=== PATIENT | male | born 1945 | race Caucasian/White ===

== ENCOUNTER 2016-05-07 09:40 | Outpatient (CLI) | payer MEDICARE | END 2016-05-07 09:41 | disposition home or self-care (01) | DX: Z79.01 Long term (current) use of anticoagulants (principal); I48.0 Paroxysmal atrial fibrillation ==

== ENCOUNTER 2016-06-11 07:37 | Outpatient (CLI) | payer MEDICARE | END 2016-06-11 07:38 | disposition home or self-care (01) | DX: Z79.01 Long term (current) use of anticoagulants (principal); I48.91 Unspecified atrial fibrillation ==

== ENCOUNTER 2016-06-25 07:41 | Outpatient (CLI) | payer MEDICARE | END 2016-06-25 07:42 | disposition home or self-care (01) | DX: Z79.01 Long term (current) use of anticoagulants (principal); I48.0 Paroxysmal atrial fibrillation ==

== ENCOUNTER 2016-08-07 08:27 | Outpatient (CLI) | payer MEDICARE | END 2016-08-07 08:28 | disposition home or self-care (01) | LOC: LAB.F 08:27 | PROVIDERS: ATTEND Family Medicine | DX: I48.0 Paroxysmal atrial fibrillation (principal); Z79.01 Long term (current) use of anticoagulants | CPT/HCPCS: 85610 ==

== ENCOUNTER 2016-09-10 07:15 | Outpatient (CLI) | payer MEDICARE | END 2016-09-10 07:16 | disposition home or self-care (01) | LOC: LAB.F 07:15 | PROVIDERS: ATTEND Family Medicine | DX: Z79.01 Long term (current) use of anticoagulants (principal) | CPT/HCPCS: 85610 ==

== ENCOUNTER 2016-10-08 08:07 | Outpatient (CLI) | payer MEDICARE | END 2016-10-08 08:08 | disposition home or self-care (01) | LOC: LAB.F 08:07 | PROVIDERS: ATTEND Family Medicine | DX: I48.0 Paroxysmal atrial fibrillation (principal); Z79.01 Long term (current) use of anticoagulants | CPT/HCPCS: 85610 ==

== ENCOUNTER 2016-11-12 08:47 | Outpatient (CLI) | payer MEDICARE | END 2016-11-12 08:48 | disposition home or self-care (01) | LOC: LAB.F 08:47 | PROVIDERS: ATTEND Family Medicine | DX: I48.0 Paroxysmal atrial fibrillation (principal); Z79.01 Long term (current) use of anticoagulants | CPT/HCPCS: 85610 ==

== ENCOUNTER 2016-12-17 07:49 | Outpatient (CLI) | payer MEDICARE | END 2016-12-17 07:50 | disposition home or self-care (01) | LOC: LAB.F 07:49 | PROVIDERS: ATTEND Family Medicine | DX: I48.0 Paroxysmal atrial fibrillation (principal); Z79.01 Long term (current) use of anticoagulants | CPT/HCPCS: 85610 ==

== ENCOUNTER 2017-01-14 08:01 | Outpatient (CLI) | payer MEDICARE | END 2017-01-14 08:02 | disposition home or self-care (01) | LOC: LAB.F 08:01 | PROVIDERS: ATTEND Family Medicine | DX: I48.0 Paroxysmal atrial fibrillation (principal); Z79.01 Long term (current) use of anticoagulants | CPT/HCPCS: 85610 ==

== ENCOUNTER 2017-01-14 10:04 | Outpatient (CLI) | payer MEDICARE | END 2017-01-14 10:05 | disposition home or self-care (01) | LOC: LAB.F 10:04 | PROVIDERS: ATTEND Family Medicine | DX: I48.0 Paroxysmal atrial fibrillation (principal); Z79.01 Long term (current) use of anticoagulants | CPT/HCPCS: 85610 ==

== ENCOUNTER 2017-02-11 08:00 | Outpatient (CLI) | payer MEDICARE | END 2017-02-11 08:01 | disposition home or self-care (01) | LOC: LAB.F 08:00 | PROVIDERS: ATTEND Family Medicine | DX: I48.0 Paroxysmal atrial fibrillation (principal); Z79.01 Long term (current) use of anticoagulants | CPT/HCPCS: 85610 ==

== ENCOUNTER 2017-03-25 07:48 | Outpatient (CLI) | payer MEDICARE | END 2017-03-25 07:49 | disposition home or self-care (01) | LOC: LAB.F 07:48 | PROVIDERS: ATTEND Family Medicine | DX: I48.0 Paroxysmal atrial fibrillation (principal); Z79.01 Long term (current) use of anticoagulants | CPT/HCPCS: 85610 ==

== ENCOUNTER 2017-04-15 08:09 | Outpatient (CLI) | payer MEDICARE | END 2017-04-15 08:10 | disposition home or self-care (01) | LOC: LAB.F 08:09 | PROVIDERS: ATTEND Family Medicine | DX: I48.0 Paroxysmal atrial fibrillation (principal); Z79.01 Long term (current) use of anticoagulants | CPT/HCPCS: 85610 ==

== ENCOUNTER 2017-05-13 08:00 | Outpatient (CLI) | payer MEDICARE | END 2017-05-13 08:01 | disposition home or self-care (01) | LOC: LAB.F 08:00 | PROVIDERS: ATTEND Family Medicine | DX: I48.0 Paroxysmal atrial fibrillation (principal); Z79.01 Long term (current) use of anticoagulants | CPT/HCPCS: 85610 ==

== ENCOUNTER 2017-06-17 07:47 | Outpatient (CLI) | payer MEDICARE ==
[2017-06-17 10:33] LABS: BILIRUBIN,URINE NEGATIVE (NEGATIVE); GLUCOSE, URINE (UA) NEGATIVE (NEGATIVE); KETONES,URINE (UA) NEGATIVE (NEGATIVE); LEUKOCYTE ESTERASE, URINE NEGATIVE (NEGATIVE); NITRITE,URINE NEGATIVE (NEGATIVE); OCCULT BLOOD,URINE NEGATIVE (NEGATIVE); PROTEIN,URINE NEGATIVE (NEGATIVE); UROBILINOGEN,URINE 0.2 (NORMAL) E.U./dL (NORMAL)
[2017-06-17 10:50] LABS: ALBUMIN 3.8 g/dL (3.2-5.5); ALBUMIN/GLOBULIN RATIO 1.5 (1.0-2.2); ALKALINE PHOSPHATASE 52 IU/L (42-121); ALT ALANINE AMINOTRANSFERASE 26 IU/L (10-60); AST ASPARTATE AMINOTRANSFERASE 29 IU/L (10-42); BILIRUBIN,TOTAL 1.3 mg/dL (0.2-1.0); BUN - BLOOD UREA NITROGEN 19 mg/dL (6-20); CALCIUM 8.9 mg/dL (8.5-10.3); CARBON DIOXIDE - CO2 29 mmol/L (21-32); CHLORIDE 107 mmol/L (101-111); CHOL/HDL RATIO 3.8 (<5.0); CHOLESTEROL 190 mg/dL; CREATININE 0.8 mg/dL (0.6-1.2); GFR - MDRD 96 (>89); GLUCOSE 93 mg/dL (70-100); HDL CHOLESTEROL 50 mg/dL; LDL CHOLESTEROL,CALCULATED 125 mg/dL; LDL/HDL RATIO 2.5 (<3.6); SODIUM 141 mmol/L (135-145); TOTAL PROTEIN 6.3 g/dL (6.7-8.2); VLDL CHOLESTEROL 15 mg/dL
[2017-06-17 10:58] LABS: CLARITY,URINE CLEAR (CLEAR)
[2017-06-17 11:02] LABS: BACTERIA,URINE Rare /HPF (None Seen); MUCUS,URINE Few Strands; RBC,URINE None Seen /HPF (0-5); SQUAMOUS EPITHELIAL CELL,UR RARE Squamous (<= Few)
== END 2017-06-17 07:48 | disposition home or self-care (01) ==
LOC: LAB.F 07:47
PROVIDERS: ATTEND Family Medicine
DX: Z00.00 Encounter for general adult medical examination without abnormal findings (principal); I10 Essential (primary) hypertension; I48.0 Paroxysmal atrial fibrillation; Z79.01 Long term (current) use of anticoagulants; Z12.5 Encounter for screening for malignant neoplasm of prostate
CPT/HCPCS: 36415; 80053; 80061; 81001; 85610; G0103; 83721; 84153; 87086

== ENCOUNTER 2017-07-10 08:30 | Outpatient (CLI) | payer MEDICARE ==
--- NOTE | 2017-07-14 17:23 | DEXA Report ---
DEXA SCAN: 07/10/2017 CLINICAL INDICATION: Osteoporosis. TECHNIQUE: Dual energy x-ray absorptiometry (DXA) was performed on a [email or web address] system. Regions measured are the AP spine, femoral neck, and, if needed, forearm. COMPARISON: None. In accordance with the International Society for Clinical Densitometry (ISCD) guidelines, data from previous exams may be reanalyzed using current recommendations and techniques. This is done to allow a more accurate basis for comparison with the current study. FINDINGS The data for the lumbar spine is as follows: REGION BMD (g/cm/cm) T-SCORE Z-SCORE L1 0.760 -3.3 -3.4 L2 0.813 -3.6 -3.6 L3 0.909 -2.8 -2.8 L4 0.862 -3.2 -3.2 L1-L4 0.841 -3.2 -3.2 NOTE: All evaluable vertebrae are used for classification. The data for the hip is as follows: REGION BMD (g/cm/cm) T-SCORE Z-SCORE Neck 0.780 -2.2 -1.4 TOTAL 0.918 -1.3 -0.9 NOTE: The femoral neck or total proximal femur, whichever is lowest, is used for classification. IMPRESSION WHO CLASSIFICATION BASED ON THE INTERNATIONAL REFERENCE STANDARD IS OSTEOPOROSIS. FRACTURE RISK IS HIGH. RECOMMENDATION: Patients with diagnosis of osteoporosis or osteopenia should have regular bone mineral density assessment. For those eligible for Medicare, routine testing is allowed once every 2 years. Testing frequency can be increased for patients who have rapidly progressing disease or for those who are receiving medical therapy to restore bone mass. COMMENT World Health Organization (WHO) definitions for osteoporosis and osteopenia: NORMAL BMD: T-score at 1.0 or higher, fracture risk is low. OSTEOPENIA BMD: T-score between 1.0 and -2.5, fracture risk is increased. OSTEOPOROSIS BMD: T-score at 2.5 or lower, fracture risk high. National Osteoporosis Foundation recommends: 1. Obtain adequate dietary calcium (at least 1200 mg per day) and vitamin D (400 -800 international units per day). 2. Participate, as appropriate, in regular weightbearing and muscle- strengthening exercise. 3. Avoid tobacco use and reduce alcohol and caffeine intake. 4. For more detailed information see the website at www.NOF.org. TD: 07/10/2017 09:36 FRANCIS
== END 2017-07-10 08:31 | disposition home or self-care (01) ==
LOC: DI 08:30
PROVIDERS: ATTEND Family Medicine
DX: M81.0 Age-related osteoporosis without current pathological fracture (principal)
CPT/HCPCS: 77080

== ENCOUNTER 2017-07-22 07:43 | Outpatient (CLI) | payer MEDICARE | END 2017-07-22 07:44 | disposition home or self-care (01) | LOC: LAB.F 07:43 | PROVIDERS: ATTEND Family Medicine | DX: I48.0 Paroxysmal atrial fibrillation (principal); Z79.01 Long term (current) use of anticoagulants | CPT/HCPCS: 85610 ==

== ENCOUNTER 2017-08-26 07:37 | Outpatient (CLI) | END 2017-08-26 07:38 | disposition home or self-care (01) ==

== ENCOUNTER 2017-09-25 07:25 | Outpatient (CLI) | payer MEDICARE | END 2017-09-25 07:26 | disposition home or self-care (01) | LOC: LAB.F 07:25 | PROVIDERS: ATTEND Family Medicine | DX: I48.0 Paroxysmal atrial fibrillation (principal); Z79.01 Long term (current) use of anticoagulants | CPT/HCPCS: 85610 ==

== ENCOUNTER 2017-10-09 10:25 | Outpatient (CLI) | payer MEDICARE | END 2017-10-09 10:26 | disposition home or self-care (01) | LOC: LAB.F 10:25 | PROVIDERS: ATTEND Family Medicine | DX: I48.0 Paroxysmal atrial fibrillation (principal); Z79.01 Long term (current) use of anticoagulants | CPT/HCPCS: 85610 ==

== ENCOUNTER 2017-11-14 07:47 | Outpatient (CLI) | payer MEDICARE | END 2017-11-14 07:48 | disposition home or self-care (01) | LOC: LAB.F 07:47 | PROVIDERS: ATTEND Nurse Practitioner Family | DX: Z79.01 Long term (current) use of anticoagulants (principal) | CPT/HCPCS: 85610 ==

== ENCOUNTER 2017-12-04 07:33 | Outpatient (CLI) | payer MEDICARE | END 2017-12-04 07:34 | disposition home or self-care (01) | LOC: LAB.F 07:33 | PROVIDERS: ATTEND Nurse Practitioner Family | DX: Z79.01 Long term (current) use of anticoagulants (principal) | CPT/HCPCS: 85610 ==

== ENCOUNTER 2018-01-07 07:50 | Outpatient (CLI) | payer MEDICARE | END 2018-01-07 07:51 | disposition home or self-care (01) | LOC: LAB.F 07:50 | PROVIDERS: ATTEND Nurse Practitioner Family | DX: Z79.01 Long term (current) use of anticoagulants (principal) | CPT/HCPCS: 85610 ==

== ENCOUNTER 2018-01-14 11:16 | Outpatient (CLI) | payer MEDICARE ==
[2018-01-14 17:48] LABS: INR 1.9 (0.8-1.2); PT - PROTHROMBIN TIME 21.7 secs (9.9-12.6)
== END 2018-01-14 11:17 | disposition home or self-care (01) ==
LOC: LAB.F 11:16
PROVIDERS: ATTEND Nurse Practitioner Family
DX: Z79.01 Long term (current) use of anticoagulants (principal)
CPT/HCPCS: 36415; 85610

== ENCOUNTER 2018-01-27 13:43 | Outpatient (CLI) | payer MEDICARE | END 2018-01-27 13:44 | LOC: LAB.S 13:43 | PROVIDERS: ATTEND Nurse Practitioner Family | DX: Z79.01 Long term (current) use of anticoagulants (principal) | CPT/HCPCS: 85610 ==

== ENCOUNTER 2018-02-10 13:47 | Outpatient (CLI) | payer MEDICARE | END 2018-02-10 23:59 | disposition home or self-care (01) | LOC: LAB.S 13:47 | PROVIDERS: ATTEND Nurse Practitioner Family | DX: Z79.01 Long term (current) use of anticoagulants (principal) | CPT/HCPCS: 85610 ==

== ENCOUNTER 2018-02-18 07:47 | Outpatient (CLI) | payer MEDICARE | END 2018-02-18 07:48 | disposition home or self-care (01) | LOC: LAB.F 07:47 | PROVIDERS: ATTEND Nurse Practitioner Family | DX: Z79.01 Long term (current) use of anticoagulants (principal) | CPT/HCPCS: 85610 ==

== ENCOUNTER 2018-03-06 08:48 | Outpatient (CLI) | payer MEDICARE | END 2018-03-06 08:49 | disposition home or self-care (01) | LOC: LAB.F 08:48 | PROVIDERS: ATTEND Nurse Practitioner Family | DX: Z79.01 Long term (current) use of anticoagulants (principal) | CPT/HCPCS: 85610 ==

== ENCOUNTER 2018-04-04 08:31 | Outpatient (CLI) | payer MEDICARE | END 2018-04-04 08:32 | disposition home or self-care (01) | LOC: LAB.F 08:31 | PROVIDERS: ATTEND Nurse Practitioner Family | DX: Z79.01 Long term (current) use of anticoagulants (principal) | CPT/HCPCS: 85610 ==

== ENCOUNTER 2018-05-07 08:01 | Outpatient (CLI) | payer MEDICARE | END 2018-05-07 08:02 | disposition home or self-care (01) | LOC: LAB.F 08:01 | PROVIDERS: ATTEND Nurse Practitioner Family | DX: Z79.01 Long term (current) use of anticoagulants (principal) | CPT/HCPCS: 85610 ==

== ENCOUNTER 2018-06-04 08:01 | Outpatient (CLI) | payer MEDICARE | END 2018-06-04 08:02 | disposition home or self-care (01) | LOC: LAB.F 08:01 | PROVIDERS: ATTEND Nurse Practitioner Family | DX: Z51.81 Encounter for therapeutic drug level monitoring (principal); Z79.01 Long term (current) use of anticoagulants | CPT/HCPCS: 85610 ==

== ENCOUNTER 2018-06-16 08:04 | Outpatient (CLI) | payer MEDICARE | END 2018-06-16 08:05 | disposition home or self-care (01) | LOC: LAB.F 08:04 | PROVIDERS: ATTEND Nurse Practitioner Family | DX: Z79.01 Long term (current) use of anticoagulants (principal) | CPT/HCPCS: 85610 ==

== ENCOUNTER 2018-06-26 10:26 | Outpatient (CLI) | payer MEDICARE | END 2018-06-26 10:27 | disposition home or self-care (01) | LOC: LAB.F 10:26 | PROVIDERS: ATTEND Nurse Practitioner Family | DX: Z79.01 Long term (current) use of anticoagulants (principal) | CPT/HCPCS: 85610 ==

== ENCOUNTER 2018-07-17 08:02 | Outpatient (CLI) | payer MEDICARE | END 2018-07-17 08:03 | disposition home or self-care (01) | LOC: LAB.F 08:02 | PROVIDERS: ATTEND Nurse Practitioner Family | DX: Z51.81 Encounter for therapeutic drug level monitoring (principal); Z79.01 Long term (current) use of anticoagulants | CPT/HCPCS: 85610 ==

== ENCOUNTER 2018-08-25 08:08 | Outpatient (CLI) | payer MEDICARE | END 2018-08-25 08:09 | disposition home or self-care (01) | LOC: LAB.F 08:08 | PROVIDERS: ATTEND Internal Medicine | DX: I48.91 Unspecified atrial fibrillation (principal); Z79.01 Long term (current) use of anticoagulants | CPT/HCPCS: 85610 ==

== ENCOUNTER 2018-10-01 08:46 | Outpatient (CLI) | payer MEDICARE | END 2018-10-01 08:47 | disposition home or self-care (01) | LOC: LAB.S 08:46 | PROVIDERS: ATTEND Internal Medicine | DX: I48.91 Unspecified atrial fibrillation (principal); Z79.01 Long term (current) use of anticoagulants | CPT/HCPCS: 85610 ==

== ENCOUNTER 2018-11-10 10:09 | Outpatient (CLI) | payer MEDICARE | END 2018-11-10 10:10 | disposition home or self-care (01) | LOC: LAB.S 10:09 | PROVIDERS: ATTEND Internal Medicine | DX: I48.91 Unspecified atrial fibrillation (principal); Z79.01 Long term (current) use of anticoagulants | CPT/HCPCS: 85610 ==

== ENCOUNTER 2018-11-18 08:40 | Outpatient (CLI) | payer MEDICARE | END 2018-11-18 08:41 | disposition home or self-care (01) | LOC: LAB.S 08:40 | PROVIDERS: ATTEND Internal Medicine | DX: I48.91 Unspecified atrial fibrillation (principal); Z79.01 Long term (current) use of anticoagulants | CPT/HCPCS: 85610 ==

== ENCOUNTER 2018-11-25 14:01 | Outpatient (CLI) | payer MEDICARE | END 2018-11-25 14:02 | disposition home or self-care (01) | LOC: LAB.S 14:01 | PROVIDERS: ATTEND Internal Medicine | DX: I48.91 Unspecified atrial fibrillation (principal); Z79.01 Long term (current) use of anticoagulants | CPT/HCPCS: 85610 ==

== ENCOUNTER 2018-12-09 08:13 | Outpatient (CLI) | payer MEDICARE | END 2018-12-09 08:14 | disposition home or self-care (01) | LOC: LAB.S 08:13 | PROVIDERS: ATTEND Internal Medicine | DX: Z79.01 Long term (current) use of anticoagulants (principal); I48.91 Unspecified atrial fibrillation | CPT/HCPCS: 85610 ==

== ENCOUNTER 2019-01-05 08:34 | Outpatient (CLI) | payer MEDICARE | END 2019-01-05 08:35 | disposition home or self-care (01) | LOC: LAB.S 08:34 | PROVIDERS: ATTEND Internal Medicine | DX: Z79.01 Long term (current) use of anticoagulants (principal); I48.91 Unspecified atrial fibrillation | CPT/HCPCS: 85610 ==

== ENCOUNTER 2019-01-13 08:22 | Outpatient (CLI) | payer MEDICARE | END 2019-01-13 08:23 | disposition home or self-care (01) | LOC: LAB.S 08:22 | PROVIDERS: ATTEND Internal Medicine | DX: Z79.01 Long term (current) use of anticoagulants (principal); I48.91 Unspecified atrial fibrillation | CPT/HCPCS: 85610 ==

== ENCOUNTER 2019-01-20 08:55 | Outpatient (CLI) | payer MEDICARE | END 2019-01-20 08:56 | disposition home or self-care (01) | LOC: LAB.S 08:55 | PROVIDERS: ATTEND Internal Medicine | DX: Z79.01 Long term (current) use of anticoagulants (principal); I48.91 Unspecified atrial fibrillation | CPT/HCPCS: 85610 ==

== ENCOUNTER 2019-01-27 08:11 | Outpatient (CLI) | payer MEDICARE | END 2019-01-27 23:59 | disposition home or self-care (01) | LOC: LAB.S 08:11 | PROVIDERS: ATTEND Internal Medicine | DX: Z79.01 Long term (current) use of anticoagulants (principal); I48.91 Unspecified atrial fibrillation | CPT/HCPCS: 85610 ==

== ENCOUNTER 2019-02-04 08:43 | Day surgery (SDC) | payer MEDICARE ==
[2019-02-04] MEDS ORDERED: fentaNYL 250 MCG/5 ML VIAL IVP ONE (08:44)
[2019-02-04] MEDS ORDERED: MIDAZOLAM 2 MG/2 ML VIAL IVP ONE (08:44)
[2019-02-04] MEDS ORDERED: LACTATED RINGERS 1,000 ML IV ONE (09:12)
[2019-02-04 10:25] VITALS: BP 102/70
== END 2019-02-04 08:44 | disposition home or self-care (01) ==
LOC: SDS 08:43
PROVIDERS: ATTEND Surgery
PROC: 0DJD8ZZ Inspection of Lower Intestinal Tract, Via Natural or Artificial Opening Endoscopic (ICD-10-PCS; principal; 2019-02-04 10:00)
DX: Z12.11 Encounter for screening for malignant neoplasm of colon (principal); K57.30 Diverticulosis of large intestine without perforation or abscess without bleeding; I48.91 Unspecified atrial fibrillation; N40.0 Benign prostatic hyperplasia without lower urinary tract symptoms; I10 Essential (primary) hypertension
CPT/HCPCS: G0121; J3010; J7120

== ENCOUNTER 2019-02-12 09:14 | Outpatient (CLI) | payer MEDICARE | END 2019-02-12 09:15 | disposition home or self-care (01) | LOC: LAB.S 09:14 | PROVIDERS: ATTEND Internal Medicine | DX: I48.91 Unspecified atrial fibrillation (principal); Z79.01 Long term (current) use of anticoagulants | CPT/HCPCS: 85610 ==

== ENCOUNTER 2019-02-19 11:32 | Outpatient (CLI) | payer MEDICARE | END 2019-02-19 11:33 | disposition home or self-care (01) | LOC: LAB.S 11:32 | PROVIDERS: ATTEND Internal Medicine | DX: Z79.01 Long term (current) use of anticoagulants (principal); I48.91 Unspecified atrial fibrillation | CPT/HCPCS: 85610 ==

== ENCOUNTER 2019-03-11 09:56 | Outpatient (CLI) | payer MEDICARE | END 2019-03-11 09:57 | disposition home or self-care (01) | LOC: LAB.S 09:56 | PROVIDERS: ATTEND Internal Medicine | DX: Z79.01 Long term (current) use of anticoagulants (principal); I48.91 Unspecified atrial fibrillation | CPT/HCPCS: 85610 ==

== ENCOUNTER 2019-04-14 08:35 | Outpatient (CLI) | payer MEDICARE | END 2019-04-14 08:36 | disposition home or self-care (01) | LOC: LAB.S 08:35 | PROVIDERS: ATTEND Family Medicine | DX: Z79.01 Long term (current) use of anticoagulants (principal) | CPT/HCPCS: 85610 ==

== ENCOUNTER 2019-05-13 11:24 | Outpatient (CLI) | payer MEDICARE | END 2019-05-13 11:25 | disposition home or self-care (01) | LOC: LAB.S 11:24 | PROVIDERS: ATTEND Family Medicine | DX: Z79.01 Long term (current) use of anticoagulants (principal) | CPT/HCPCS: 85610 ==

== ENCOUNTER 2019-07-14 16:12 | Outpatient (CLI) | payer MEDICARE | END 2019-07-14 16:13 | disposition home or self-care (01) | LOC: LAB 16:12 | PROVIDERS: ATTEND Family Medicine | DX: Z79.01 Long term (current) use of anticoagulants (principal) | CPT/HCPCS: 85610 ==

== ENCOUNTER 2020-06-09 08:32 | Outpatient (CLI) | payer MEDICARE ==
[2020-06-09 15:16] LABS: BASOPHILS % (AUTO) 0.3 %; EOSINOPHILS % (AUTO) 1.2 %; HCT - HEMATOCRIT 40.5 % (42.0-52.0); HGB - HEMOGLOBIN 13.4 g/dL (14.0-18.0); LYMPHOCYTES # (AUTO) 1.1 10^3/uL (1.5-3.5); LYMPHOCYTES % (AUTO) 32.6 %; MEAN CORPUSCULAR HEMOGLOBIN 33.5 pg (27.0-31.0); MEAN CORPUSCULAR HGB CONC 33.1 g/dL (32.0-36.0); MEAN CORPUSCULAR VOLUME 101.3 fL (80.0-94.0); MEAN PLATELET VOLUME 10.8 fL (7.4-11.4); MONOCYTES # (AUTO) 0.4 10^3/uL (0.0-1.0); MONOCYTES % (AUTO) 11.5 %; NEUTROPHILS # (AUTO) 1.9 10^3/uL (1.5-6.6); NEUTROPHILS % (AUTO) 54.4 %; PLT - PLATELET COUNT 150 10^3/uL (130-450); RED CELL DISTRIBUTION WIDTH 12.3 % (12.0-15.0); WHITE BLOOD COUNT 3.5 x10^3/uL (4.8-10.8)
[2020-06-09 15:49] LABS: CHOL/HDL RATIO 3.3 (<5.0); CHOLESTEROL 214 mg/dL; HDL CHOLESTEROL 64 mg/dL; LDL CHOLESTEROL,CALCULATED 136 mg/dL; LDL/HDL RATIO 2.1 (<3.6); TRIGLYCERIDES 69 mg/dL; VLDL CHOLESTEROL 14 mg/dL
[2020-06-09 15:52] LABS: INR 2.4 (0.8-1.2); PT - PROTHROMBIN TIME 24.9 secs (9.9-12.6)
[2020-06-09 15:53] LABS: THYROID STIMULATING HORMONE 2.11 uIU/mL (0.34-5.60)
== END 2020-06-09 08:33 | disposition home or self-care (01) ==
LOC: LAB.S 08:32
PROVIDERS: ATTEND Registered Nurse
DX: I10 Essential (primary) hypertension (principal); Z79.01 Long term (current) use of anticoagulants; I48.91 Unspecified atrial fibrillation; N40.1 Benign prostatic hyperplasia with lower urinary tract symptoms; N13.8 Other obstructive and reflux uropathy
CPT/HCPCS: 36415; 80061; 83721; 84153; 84443; 85025; 85610

== ENCOUNTER 2021-01-30 12:11 | Day surgery (SDC) | payer MEDICARE ==
[2021-01-30] MEDS ORDERED: CEFAZOLIN SODIUM IN 0.9 % NACL 2 GM/100 ML BAG IV ONE (12:36)
[2021-01-30] MEDS ORDERED: LACTATED RINGERS 1,000 ML IV ONE ×2 (13:02→15:03)
[2021-01-30] MEDS ORDERED: ONDANSETRON 4 MG/2 ML VIAL IVP PRN ×2 (13:26→15:17)
[2021-01-30] MEDS ORDERED: NALOXONE 0.4 MG/ML VIAL IVP PRN (13:26)
[2021-01-30] MEDS ORDERED: METOCLOPRAMIDE 10 MG/2 ML VIAL IVP PRN (13:26)
[2021-01-30] MEDS ORDERED: HYDROmorphone 0.5 MG/0.5 ML SYRINGE IVP PRN (13:26)
[2021-01-30] MEDS ORDERED: MORPHINE 2 MG/ML CARPUJECT IVP PRN (13:26)
[2021-01-30] MEDS ORDERED: PROPOFOL 500 MG/50 ML 500 MG/50 ML VIAL ONE (13:26)
[2021-01-30] MEDS ORDERED: fentaNYL 100 MCG/2 ML VIAL IVP PRN (13:26)
[2021-01-30] MEDS ORDERED: ATROPINE ABBOJECT 1 MG/10 ML SYRINGE IVP PRN (13:26)
[2021-01-30] MEDS ORDERED: ePHEDrine 50 MG/ML VIAL IVP PRN (13:26)
--- NOTE | 2021-01-30 13:26 | ANESTHESIA ---
Pre-Anesthesia VS, & Labs - Diagnosis right inguinal hernia - Procedure right inguinal hernia repair Height: 6 ft 3 in Weight (kg): 94.3 kg Body Mass Index: 25.9 BMI Classification: Overweight - NPO >8 hours - Lab Results Lab results reviewed: Yes Home Medications and Allergies Home Medications: Ambulatory Orders Doxycycline Hyclate [Doryx] 50 mg PO ONCE 01/24/21 Doxazosin Mesylate 8 mg PO DAILY 06/11/14 Finasteride 5 mg PO DAILY 06/11/14 Warfarin [Coumadin] 5 mg PO 1400 06/11/14 Doxycycline Hyclate [Doryx] 50 mg PO ONCE 01/24/21 Allergies/Adverse Reactions: Allergies Allergy/AdvReac Type Severity Reaction Status Date / Time No Known Drug Allergies Allergy Verified 06/11/14 14:14 Anes History & Medical History - Anesthetic History Anesthesia Complications: reports: No previous complications Family history of Anesthesia Complications: Denies Family history of Malignant Hyperthermia: Denies - Medical History Cardiovascular: reports: Hypertension, Atrial fibrillation Pulmonary: reports: None Gastrointestinal: reports: Other Urinary: reports: Benign prostate hypertrophy, Frequency Musculoskeletal: reports: Osteoarthritis Endocrine/Autoimmune: reports: None Skin: reports: Rosacea - Surgical History General: reports: Colonoscopy Eyes Ears Nose Throat (EENT): reports: Cataracts, Tonsil/Adenoidectomy Orthopedic: reports: Arthroscopic surgery Exam General: Alert, Oriented x3, Cooperative, No acute distress Dental: Poor dentition Mouth Openin Fingerbreadth Neck Mobility: Normal Mallampati classification: I Respiratory: Lungs clear, Normal breath sounds, No respiratory distress, No accessory muscle use Cardiovascular: Regular rate, Normal S1, Normal S2, No murmurs Plan Anesthesia Type: General (back up), MAC Consent for Procedure(s) Verified and Reviewed: Yes Code Status: Attempt Resuscitation ASA classification: 3-Severe systemic disease Is this case an emergency?: No
[2021-01-30] MEDS ORDERED: LIDOCAINE MPF 2%-EPI 1:200000 20 ML VIAL ONE (13:27)
[2021-01-30] MEDS ORDERED: BUPIVACAINE 0.5% PF 10 ML VIAL ONE (13:27)
[2021-01-30] MEDS ORDERED: LACTATED RINGERS 1,000 ML IV SCH (14:00)
[2021-01-30] MEDS ORDERED: LIDOCAINE MPF 2%-EPI 1:200000 20 ML VIAL SUBQ ONE (14:28)
[2021-01-30] MEDS ORDERED: BUPIVACAINE 0.5% PF 30 ML VIAL SUBQ ONE (14:28)
[2021-01-30] MEDS ORDERED: ONDANSETRON 4 MG/2 ML VIAL ONE (14:32)
[2021-01-30] MEDS ORDERED: DEXAMETHASONE 4 MG/ML VIAL ONE (14:32)
[2021-01-30] MEDS ORDERED: ceFAZolin 1 GM VIAL IR ONE (14:38)
[2021-01-30] MEDS ORDERED: ceFAZolin 1 GM VIAL ONE (14:42)
[2021-01-30] MEDS ORDERED: ACETAMINOPHEN 1,000 MG/100 ML 100 ML IV ONE (14:53)
[2021-01-30] MEDS ORDERED: KETOROLAC 30 MG/ML VIAL ONE (14:53)
[2021-01-30] MEDS ORDERED: fentaNYL 100 MCG/2 ML VIAL ONE (14:59)
--- NOTE | 2021-01-30 15:16 | OPERATIVE REPORT ---
Operative Report - General Procedure Date: 01/30/21 Planned Procedure: Right inguinal hernia repair Pre-Op Diagnosis: Symptomatic indirect right inguinal hernia Procedure Performed: Right inguinal hernia repair Post Op Diagnosis: Symptomatic indirect right inguinal hernia - Procedure Note Primary Surgeon: Julieth Anesthesia Provider: Tj Anesthesia Technique: General LMA, Local Pathology: None Estimated Blood Loss (mL): 10 Findings: Large indirect inguinal hernia Complications: None apparent - Other Other Information/Narrative: After obtaining informed consent, the patient is brought to the operating room and placed in the supine position on the operating table. Following successful induction of general endotracheal anesthesia, appropriate padding of all bony prominences, and placement of appropriate monitors, the abdomen was prepped and draped in the standard surgical fashion. A timeout was held per scope protocol. All elements of the surgical safety checklist were followed before, during, and after the procedure. We began the procedure by infiltrating a mixture of local anesthetics medial to the anterior superior iliac spine on the right. This was done to create an ileal inguinal nerve block. We then selected a site for an incision in the right lower quadrant just superior and lateral to the right pubic tubercle. This area was anesthetized with additional local anesthetic and an incision was created here.The incision was carried down through the skin and subcutaneous tissue to reveal the fascia of the external oblique aponeurosis. Retractor was placed and the aponeurosis was opened in direction of its fibers. The ilioinguinal nerve was immediately identified. We continued by identifying the spermatic cord and gently encircling it with a Ofelia drain. The hernia sac was carefully dissected free from the cord structures and was noted to be in the inferior medial position. The sac was in the indirect position. We carefully dissected the spermatic cord from the sac. The hernia sac was then placed back into the abdominal cavity. We elected to repair the hernia with a large Prolene hernia system mesh implant. This was dipped in Ancef containing solution and then deployed into the defect. The posterior leaflet was straightened and flattened in the preperitoneal space. The anterior leaflet was then nicked medially to provide a place for the spermatic cord and then closed with a Vicryl suture. The more inferior aspect was then sewn to Chip's ligament medially. Laterally it was tucked under the external beak aponeurosis. The wound was checked for hemostasis and irrigated with warm saline solution. It was aspirated free of all fluid and particulate matter. The extra oblique aponeurosis was then closed with a running locking Vicryl suture June's fascia was closed with Vicryl suture and Monocryl stitches were placed in the skin. All sponge, needle, and instrument counts were correct at the conclusion of the case. The patient was allowed awaken from anesthesia without difficulty and taken to the postanesthesia care unit in good condition.
[2021-01-30] MEDS ORDERED: oxyCODONE 5 MG TABLET PO PRN (15:17)
[2021-01-30] MEDS ORDERED: ACETAMINOPHEN 325 MG TABLET PO PRN (15:17)
[2021-01-30] MEDS ORDERED: IBUPROFEN 600 MG TABLET PO PRN (15:17)
--- NOTE | 2021-01-30 15:35 | ANESTHESIA POST OP EVALUATION ---
Anesthesia Post Eval - Post Anesthesia Eval Vitals: Last Vital Signs Temp 36.3 C L 01/30/21 15:30 Pulse 117 H 01/30/21 15:30 Resp 16 01/30/21 15:30 BP 115/81 H 01/30/21 15:30 Pulse Ox 98 01/30/21 15:30 CV Function Including HR & BP: Stable Pain Control: Satisfactory Nausea & Vomiting: Negative Mental Status: Baseline Respiratory Status: Airway Patent Hydration Status: Satisfactory Anesthesia Complications: None
[2021-01-30 17:04] VITALS: BP 133/84
== END 2021-01-30 12:12 | disposition home or self-care (01) ==
LOC: SDS 12:11
PROVIDERS: ATTEND Surgery
DX: K40.90 Unilateral inguinal hernia, without obstruction or gangrene, not specified as recurrent (principal); I10 Essential (primary) hypertension; I48.91 Unspecified atrial fibrillation; N40.1 Benign prostatic hyperplasia with lower urinary tract symptoms; R35.0 Frequency of micturition; Z79.01 Long term (current) use of anticoagulants; Z79.899 Other long term (current) drug therapy
CPT/HCPCS: 49505; C1781; J0131; J0690; J7120

== ENCOUNTER 2021-06-23 08:33 | Outpatient (CLI) | payer MEDICARE ==
[2021-06-23 15:26] LABS: BASOPHILS % (AUTO) 0.3 %; EOSINOPHILS % (AUTO) 0.8 %; HCT - HEMATOCRIT 39.5 % (42.0-52.0); HGB - HEMOGLOBIN 13.3 g/dL (14.0-18.0); LYMPHOCYTES # (AUTO) 1.2 10^3/uL (1.5-3.5); LYMPHOCYTES % (AUTO) 31.9 %; MEAN CORPUSCULAR HGB CONC 33.7 g/dL (32.0-36.0); MEAN PLATELET VOLUME 9.7 fL (7.4-11.4); MONOCYTES # (AUTO) 0.4 10^3/uL (0.0-1.0); MONOCYTES % (AUTO) 10.8 %; NEUTROPHILS # (AUTO) 2.1 10^3/uL (1.5-6.6); NEUTROPHILS % (AUTO) 56.2 %; PLT - PLATELET COUNT 163 10^3/uL (130-450); RED BLOOD COUNT 3.91 10^6/uL (4.70-6.10); RED CELL DISTRIBUTION WIDTH 12.2 % (12.0-15.0); WHITE BLOOD COUNT 3.8 x10^3/uL (4.8-10.8)
[2021-06-23 15:50] LABS: THYROID STIMULATING HORMONE 2.07 uIU/mL (0.34-5.60)
[2021-06-23 15:54] LABS: ALBUMIN 3.7 g/dL (3.2-5.5); ALBUMIN/GLOBULIN RATIO 1.4 (1.0-2.2); ALKALINE PHOSPHATASE 64 IU/L (42-121); ALT ALANINE AMINOTRANSFERASE 24 IU/L (10-60); AST ASPARTATE AMINOTRANSFERASE 25 IU/L (10-42); BILIRUBIN,TOTAL 1.6 mg/dL (0.2-1.0); BUN - BLOOD UREA NITROGEN 16 mg/dL (6-20); CALCIUM 8.8 mg/dL (8.5-10.3); CARBON DIOXIDE - CO2 29 mmol/L (21-32); CHLORIDE 106 mmol/L (101-111); CHOL/HDL RATIO 3.5 (<5.0); CHOLESTEROL 223 mg/dL; CREATININE 0.8 mg/dL (0.6-1.2); GFR - MDRD 95 (>89); GLUCOSE 91 mg/dL (70-100); HDL CHOLESTEROL 63 mg/dL; LDL CHOLESTEROL,CALCULATED 143 mg/dL; LDL/HDL RATIO 2.3 (<3.6); POTASSIUM 4.1 mmol/L (3.5-5.0); SODIUM 141 mmol/L (135-145); TOTAL PROTEIN 6.3 g/dL (6.7-8.2); TRIGLYCERIDES 86 mg/dL; VLDL CHOLESTEROL 17 mg/dL
== END 2021-06-23 23:59 | disposition home or self-care (01) ==
LOC: LAB.S 08:33
PROVIDERS: ATTEND Registered Nurse
DX: I48.91 Unspecified atrial fibrillation (principal); Z79.01 Long term (current) use of anticoagulants; Z13.29 Encounter for screening for other suspected endocrine disorder; I10 Essential (primary) hypertension
CPT/HCPCS: 36415; 80053; 80061; 83721; 84443; 85025

== ENCOUNTER 2022-02-08 14:48 | Outpatient (CLI) | payer MEDICARE ==
--- NOTE | 2022-02-08 15:21 | CT Report ---
PROCEDURE: HEAD WO INDICATIONS: MEMORY DEFICIT TECHNIQUE: Noncontrast 4.5 mm thick angled axial sections acquired from the foramen magnum to the vertex. For r adiation dose reduction, the following was used: automated exposure control, adjustment of mA and/or kV according to patient size. COMPARISON: None. FINDINGS: Image quality: Excellent. CSF spaces: Basal cisterns are patent. No extra-axial fluid collections. Ventricles are normal in size and shape. Brain: Small remote infarct in the left superior cerebellar hemisphere. Mild global cerebral volume l oss with passive expansion of the ventricles and extra-axial spaces. Moderate chronic bibasilar ische abiola changes. No acute intracranial hemorrhage, mass effect, or midline shift. Childs-white matter diffe rentiation is maintained. Skull and face: Calvarium and visualized facial bones are intact, without suspicious lesions. Sinuses: Visualized sinuses and mastoids are clear. IMPRESSION: No acute intracranial findings. Mild global volume loss and moderate chronic microvascular ischemic changes. 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 Reviewed by: Leland Mas MD on 02/08/2022 2:20 PM [facility] Approved by: Leland Mas MD on 02/08/2022 2:20 PM [facility] Station ID: [id number]
== END 2022-02-08 14:49 | disposition home or self-care (01) ==
LOC: DI 14:48
PROVIDERS: ATTEND Internal Medicine
DX: R41.3 Other amnesia (principal); Z86.73 Personal history of transient ischemic attack (TIA), and cerebral infarction without residual deficits; I67.82 Cerebral ischemia

== ENCOUNTER 2022-03-16 10:42 | Outpatient (CLI) | payer MEDICARE ==
[2022-03-16 15:57] LABS: CREATININE 0.7 mg/dL (0.6-1.2); POTASSIUM 4.1 mmol/L (3.5-5.0)
[2022-03-16 16:04] LABS: THYROID STIMULATING HORMONE 1.4 uIU/mL (0.34-5.60)
[2022-03-17 07:09] LABS: RPR Non Reactive (Non Reactive)
== END 2022-03-16 10:43 | disposition home or self-care (01) ==
LOC: LAB.S 10:42
PROVIDERS: ATTEND Internal Medicine
DX: I10 Essential (primary) hypertension (principal); L98.9 Disorder of the skin and subcutaneous tissue, unspecified; R41.3 Other amnesia
CPT/HCPCS: 36415; 80048; 82607; 84443; 86592

== ENCOUNTER 2023-04-03 10:35 | Outpatient (CLI) | payer MEDICARE ==
[2023-04-03 14:29] LABS: BASOPHILS % (AUTO) 0.3 %; EOSINOPHILS % (AUTO) 0.8 %; HCT - HEMATOCRIT 39.7 % (42.0-52.0); HGB - HEMOGLOBIN 13.4 g/dL (14.0-18.0); LYMPHOCYTES # (AUTO) 1.2 10^3/uL (1.5-3.5); MEAN CORPUSCULAR HEMOGLOBIN 34.4 pg (27.0-31.0); MEAN CORPUSCULAR HGB CONC 33.8 g/dL (32.0-36.0); MEAN CORPUSCULAR VOLUME 102.1 fL (80.0-94.0); MEAN PLATELET VOLUME 9.9 fL (7.4-11.4); MONOCYTES # (AUTO) 0.4 10^3/uL (0.0-1.0); MONOCYTES % (AUTO) 10.4 %; NEUTROPHILS # (AUTO) 2.3 10^3/uL (1.5-6.6); NEUTROPHILS % (AUTO) 57.5 %; PLT - PLATELET COUNT 153 10^3/uL (130-450); RED BLOOD COUNT 3.89 10^6/uL (4.70-6.10); RED CELL DISTRIBUTION WIDTH 12.7 % (12.0-15.0); WHITE BLOOD COUNT 3.9 x10^3/uL (4.8-10.8)
[2023-04-03 15:53] LABS: ALBUMIN 3.8 g/dL (3.2-5.5); ALBUMIN/GLOBULIN RATIO 1.5 (1.0-2.2); ALKALINE PHOSPHATASE 59 IU/L (42-121); ALT ALANINE AMINOTRANSFERASE 15 IU/L (10-60); AST ASPARTATE AMINOTRANSFERASE 19 IU/L (10-42); BILIRUBIN,TOTAL 1.3 mg/dL (0.2-1.0); BUN - BLOOD UREA NITROGEN 15 mg/dL (6-20); CALCIUM 9.2 mg/dL (8.5-10.3); CARBON DIOXIDE - CO2 29 mmol/L (21-32); CHLORIDE 108 mmol/L (101-111); CHOL/HDL RATIO 3.9 (<5.0); CHOLESTEROL 228 mg/dL; CREATININE 0.8 mg/dL (0.6-1.3); GFR - MDRD 94 (>89); GLUCOSE 86 mg/dL (74-104); HDL CHOLESTEROL 58 mg/dL; LDL CHOLESTEROL,CALCULATED 149 mg/dL; LDL/HDL RATIO 2.6 (<3.6); POTASSIUM 4.1 mmol/L (3.5-4.5); SODIUM 141 mmol/L (135-145); TOTAL PROTEIN 6.3 g/dL (6.4-8.9); TRIGLYCERIDES 107 mg/dL (48-352); VLDL CHOLESTEROL 21 mg/dL
== END 2023-04-03 10:36 | disposition home or self-care (01) ==
LOC: LAB.S 10:35
PROVIDERS: ATTEND Registered Nurse
DX: Z13.220 Encounter for screening for lipoid disorders (principal); Z79.899 Other long term (current) drug therapy
CPT/HCPCS: 36415; 80053; 80061; 83721; 85025

== ENCOUNTER 2023-06-10 14:38 | Outpatient (CLI) | payer MEDICARE | END 2023-06-10 14:39 | disposition home or self-care (01) | LOC: DI 14:38 | PROVIDERS: ATTEND Registered Nurse | DX: I48.91 Unspecified atrial fibrillation (principal); I35.0 Nonrheumatic aortic (valve) stenosis; Z79.01 Long term (current) use of anticoagulants | CPT/HCPCS: 93307 ==